=== PATIENT | male | born 1990 | race African-American/Black ===

== ENCOUNTER 2017-03-23 16:37 | Emergency (ER) | payer MEDICARE, MEDICAID ==
[~2017-03-23 16:37] MED LIST: CEPH250T PO; CLOT15CR73 TP; OLAN10TA19 PO; OLAN20TA16 PO; OXCA600T5 PO
[2017-03-23 18:07] LABS: URINE AMPHETAMINE SCREEN POSITIVE (Neg); URINE BARBITUATE SCREEN NEGATIVE (Neg); URINE BENZODIAZEPINES SCREEN NEGATIVE (Neg); URINE CANNABINOID SCREEN POSITIVE (Neg); URINE COCAINE SCREEN NEGATIVE (Neg); URINE METHADONE SCREEN NEGATIVE (Neg); URINE OPIATE SCREEN NEGATIVE (Neg); URINE PHENCYCLIDINE SCREEN NEGATIVE (Neg)
[2017-03-23 18:20] LABS: BASOPHILS % (AUTO) 0.5 % (0-1); EOSINOPHILS # (AUTO) 0.2 X10'3 (0-0.9); EOSINOPHILS % (AUTO) 3.8 % (0-6); HEMATOCRIT 42.7 % (42.0-52.0); HEMOGLOBIN 14.1 g/dl (14.0-17.9); LYMPHOCYTES # (AUTO) 1.4 X10'3 (1.1-4.8); LYMPHOCYTES % (AUTO) 24.9 % (21-51); MEAN PLATELET VOLUME 6.8 FL (7.4-10.4); MONOCYTES # (AUTO) 0.5 X10'3 (0-0.9); MONOCYTES % (AUTO) 8.3 % (2-12); NEUTROPHILS # (AUTO) 3.6 X10'3 (1.8-7.7); NEUTROPHILS % (AUTO) 62.5 % (42-75); PLATELET COUNT 261 X10'3 (140-440); RED BLOOD COUNT 4.54 X10'6 (4.70-6.10); WHITE BLOOD COUNT 5.7 X10'3 (4.5-11.0)
[2017-03-23 18:35] LABS: ALANINE AMINOTRANSFERASE 25 U/L (12-78); ALBUMIN 3.3 G/DL (3.4-5.0); ALBUMIN/GLOBULIN RATIO 1.1 (1.1-1.5); ALKALINE PHOSPHATASE 56 IU/L (46-116); ANION GAP 4 (8-16); ASPARTATE AMINO TRANSFERASE 17 U/L (10-37); BILIRUBIN,TOTAL 0.8 MG/DL (0.1-1.0); BLOOD UREA NITROGEN 8 MG/DL (7-18); BUN/CREATININE RATIO 8.7 (5.4-32.0); CALCIUM 8.4 MG/DL (8.5-10.1); CHLORIDE 106 MMOL/L (99-107); CREATININE 0.92 MG/DL (0.60-1.10); GLUCOSE 100 MG/DL (70-104); POTASSIUM 3.8 MMOL/L (3.5-5.1); SODIUM 140 MMOL/L (135-145); TOTAL CARBON DIOXIDE 30.5 MMOL/L (24-32); TOTAL PROTEIN 6.3 G/DL (6.4-8.2); eGFR > 90 ML/MIN
[2017-03-23 21:38] VITALS: BP 138/61
== END 2017-03-23 18:00 | disposition home or self-care (01) ==
LOC: ER 16:38
DX: M54.9 Dorsalgia, unspecified (principal); M54.2 Cervicalgia; F20.9 Schizophrenia, unspecified; Z98.890 Other specified postprocedural states; Z79.899 Other long term (current) drug therapy; V89.2XXA Person injured in unspecified motor-vehicle accident, traffic, initial encounter; Y93.89 Activity, other specified; Y92.89 Other specified places as the place of occurrence of the external cause; Y99.8 Other external cause status
CPT/HCPCS: 36415; 70450; 72125; 72128; 72131; 80053; 80305; 85025; 99285

== ENCOUNTER 2020-03-17 14:29 | Emergency (ER) | payer MEDICAID, MEDICARE ==
[~2020-03-17] VITALS: Ht 193 cm; Wt 113.6 kg
[~2020-03-17 14:29] MED LIST changes: -CEPH250T PO; -OLAN20TA16 PO; +OLAN20TA34 PO
[2020-03-17 14:56] VITALS: BP 114/83
[2020-03-17] MEDS ORDERED: OLAN20TA34 PO (15:27)
[2020-03-17] MEDS ORDERED: MIRT30TA8 PO (15:27)
[2020-03-17] MEDS ORDERED: VALP250S3 PO (15:27)
== END 2020-03-17 15:38 | disposition home or self-care (01) ==
LOC: ER 14:29
DX: Z02.89 Encounter for other administrative examinations (principal); Z76.0 Encounter for issue of repeat prescription; F20.9 Schizophrenia, unspecified; F12.90 Cannabis use, unspecified, uncomplicated; Z98.890 Other specified postprocedural states; Z79.2 Long term (current) use of antibiotics; Z79.899 Other long term (current) drug therapy
CPT/HCPCS: 99283

== ENCOUNTER 2020-05-08 01:21 | Emergency (ER) | payer MEDICARE ==
[~2020-05-08] VITALS: Ht 193 cm; Wt 100.0 kg
[~2020-05-08 01:21] MED LIST changes: +MIRT30TA8 PO; +VALP250S3 PO
[2020-05-08 02:29] LABS: BASOPHILS % (AUTO) 0.8 % (0-1); EOSINOPHILS # (AUTO) 0.1 X10'3 (0-0.9); EOSINOPHILS % (AUTO) 2.1 % (0-6); HEMATOCRIT 42.7 % (42.0-52.0); HEMOGLOBIN 14.4 g/dl (14.0-17.9); LYMPHOCYTES # (AUTO) 1.8 X10'3 (1.1-4.8); LYMPHOCYTES % (AUTO) 31.7 % (21-51); MEAN CORPUSCULAR HEMOGLOBIN 30.3 PG (27.0-31.0); MEAN CORPUSCULAR HGB CONC 33.8 g/dL (33.0-36.5); MEAN CORPUSCULAR VOLUME 89.6 FL (78-98); MEAN PLATELET VOLUME 7.6 FL (7.4-10.4); MONOCYTES # (AUTO) 0.6 X10'3 (0-0.9); MONOCYTES % (AUTO) 10.6 % (2-12); NEUTROPHILS # (AUTO) 3.1 X10'3 (1.8-7.7); NEUTROPHILS % (AUTO) 54.8 % (42-75); PLATELET COUNT 227 X10'3 (140-440); RED BLOOD COUNT 4.76 X10'6 (4.70-6.10); RED CELL DISTRIBUTION WIDTH 13.6 % (11.5-14.5); WHITE BLOOD COUNT 5.6 X10'3 (4.5-11.0)
[2020-05-08 02:43] LABS: ALANINE AMINOTRANSFERASE 18 U/L (12-78); ALBUMIN 3.8 G/DL (3.4-5.0); ALBUMIN/GLOBULIN RATIO 0.9 (1.1-1.5); ALKALINE PHOSPHATASE 64 IU/L (46-116); ANION GAP 5 (8-16); ASPARTATE AMINO TRANSFERASE 13 U/L (10-37); BILIRUBIN,TOTAL 0.5 MG/DL (0.1-1.0); BLOOD UREA NITROGEN 13 MG/DL (7-18); BUN/CREATININE RATIO 11.9 (5.4-32.0); CALCIUM 9.2 MG/DL (8.5-10.1); CHLORIDE 106 MMOL/L (99-107); CREATININE 1.09 MG/DL (0.60-1.10); GLUCOSE 93 MG/DL (70-104); POTASSIUM 3.8 MMOL/L (3.5-5.1); SODIUM 141 MMOL/L (135-145); TOTAL CARBON DIOXIDE 29.8 MMOL/L (24-32); TOTAL PROTEIN 7.9 G/DL (6.4-8.2); eGFR > 90 ML/MIN
--- NOTE | 2020-05-08 03:21 | NUR ---
OLI MARTÍNEZ HOME CARE WORKER/ADVOCATE FOR PATIENT AT BEDSIDE. ASSUMED CARE VSS NO SIGHN OF RESPIRATORY DISTRESS EYES CLOSE RESTING. EUPNEIC RESPIRSTIONS.
[2020-05-08] MEDS ORDERED: ondansetron 4mg rapidly disintigrating tab PO ONE (03:55)
[2020-05-08] MEDS ORDERED: amox tr/potassium clavulanate 875/125mg TAB PO ONE (03:55)
--- NOTE | 2020-05-08 04:02 | NUR ---
OLI HERNANDEZ ADMINSTRATOR [phone]
--- NOTE | 2020-05-08 04:15 | NUR ---
salt water mouth rinses to clear dried blood in mouth. Tolerated well
[2020-05-08] MEDS ORDERED: AMOX-115 PO (04:17)
--- NOTE | 2020-05-08 04:34 | NUR ---
window systems administrator José called back to turkey picker [facility]ervin johnston instructions to be discussed when he arrives to [employer] pick[facility]erv[facility].
[2020-05-08 05:23] VITALS: BP 114/76
== END 2020-05-08 05:26 | disposition home or self-care (01) ==
LOC: ER 01:21
DX: S02.40CA Maxillary fracture, right side, initial encounter for closed fracture (principal); G47.00 Insomnia, unspecified; F70 Mild intellectual disabilities; F20.9 Schizophrenia, unspecified; F12.90 Cannabis use, unspecified, uncomplicated; Z98.890 Other specified postprocedural states; Z79.899 Other long term (current) drug therapy; W18.39XA Other fall on same level, initial encounter; Y93.9 Activity, unspecified; Y92.89 Other specified places as the place of occurrence of the external cause; Y99.8 Other external cause status
CPT/HCPCS: 36415; 70450; 70486; 80053; 85025; 99285

== ENCOUNTER 2021-03-14 07:23 | Emergency (ER) | payer MEDICARE, MEDICAID ==
[~2021-03-14] VITALS: Ht 188 cm; Wt 85.0 kg
[~2021-03-14 07:23] MED LIST changes: +MIRT-88 PO; -MIRT30TA8 PO; -OLAN10TA19 PO; +OLAN10TA73 PO
[2021-03-14] MEDS ORDERED: normal saline 1000ML IV soln IVB ONE ×2 (07:55)
[2021-03-14] MEDS ORDERED: ondansetron/PF 4mg/2ml inj IV ONE (07:55)
[2021-03-14] MEDS ORDERED: pantoprazole 40MG/D5 100ML BAG 100 ML IV ONE (07:55)
[2021-03-14] MEDS ORDERED: pantoprazole 40MG/NS 100ML BAG 100 ML IV ONE (08:00)
[2021-03-14 08:11] LABS: BASOPHILS % (AUTO) 0.3 % (0-1); EOSINOPHILS # (AUTO) 0.1 X10'3 (0-0.9); EOSINOPHILS % (AUTO) 1.1 % (0-6); HEMATOCRIT 41.5 % (42.0-52.0); HEMOGLOBIN 14.2 g/dl (14.0-17.9); LYMPHOCYTES # (AUTO) 0.9 X10'3 (1.1-4.8); LYMPHOCYTES % (AUTO) 13.6 % (21-51); MEAN CORPUSCULAR HEMOGLOBIN 31.3 PG (27.0-31.0); MEAN CORPUSCULAR HGB CONC 34.3 g/dL (33.0-36.5); MEAN CORPUSCULAR VOLUME 91.3 FL (78-98); MEAN PLATELET VOLUME 6.6 FL (7.4-10.4); MONOCYTES # (AUTO) 0.5 X10'3 (0-0.9); MONOCYTES % (AUTO) 6.8 % (2-12); NEUTROPHILS # (AUTO) 5.4 X10'3 (1.8-7.7); NEUTROPHILS % (AUTO) 78.2 % (42-75); PLATELET COUNT 339 X10'3 (140-440); RED BLOOD COUNT 4.55 X10'6 (4.70-6.10); RED CELL DISTRIBUTION WIDTH 13.4 % (11.5-14.5); WHITE BLOOD COUNT 6.9 X10'3 (4.5-11.0)
[2021-03-14 08:19] LABS: ALANINE AMINOTRANSFERASE 32 U/L (12-78); ALBUMIN 3.4 G/DL (3.4-5.0); ALBUMIN/GLOBULIN RATIO 0.8 (1.1-1.5); ALKALINE PHOSPHATASE 79 IU/L (46-116); ANION GAP 6 (8-16); ASPARTATE AMINO TRANSFERASE 26 U/L (10-37); BILIRUBIN,TOTAL 0.4 MG/DL (0.1-1.0); BLOOD UREA NITROGEN 13 MG/DL (7-18); BUN/CREATININE RATIO 17.3 (5.4-32.0); CALCIUM 9.4 MG/DL (8.5-10.1); CHLORIDE 103 MMOL/L (99-107); CREATININE 0.75 MG/DL (0.60-1.10); ETHANOL < 0.010 GM/DL (0.0-0.010); GLUCOSE 94 MG/DL (70-104); LIPASE 99 U/L (73-393); POTASSIUM 4.3 MMOL/L (3.5-5.1); SODIUM 141 MMOL/L (135-145); TOTAL CARBON DIOXIDE 31.8 MMOL/L (24-32); TOTAL PROTEIN 7.7 G/DL (6.4-8.2); eGFR > 90 ML/MIN
[2021-03-14 08:59] VITALS: BP 122/97
[2021-03-14] MEDS ORDERED: ONDA8TAB13 PO (10:28)
[2021-03-14] MEDS ORDERED: PANT-47 PO (10:28)
== END 2021-03-14 11:11 | disposition home or self-care (01) ==
LOC: ER 07:23
DX: R19.7 Diarrhea, unspecified (principal); R10.31 Right lower quadrant pain; R11.10 Vomiting, unspecified; F20.9 Schizophrenia, unspecified; F17.200 Nicotine dependence, unspecified, uncomplicated; F12.90 Cannabis use, unspecified, uncomplicated; Z98.890 Other specified postprocedural states; Z79.2 Long term (current) use of antibiotics; Z79.899 Other long term (current) drug therapy
CPT/HCPCS: 36415; 71045; 80053; 80320; 83690; 85025; 96374; 96375; 99284; C9113; J2405; J7030

== ENCOUNTER 2025-02-11 17:05 | Emergency (ER) | payer MEDICAID, MEDICARE ==
[~2025-02-11] VITALS: Ht 188 cm; Wt 75.0 kg
[~2025-02-11 17:05] MED LIST changes: -OLAN20TA34 PO; +OLAN20TA81 PO; +ONDA-245 PO; +PANT-47 PO; +VALP250S26 PO; -VALP250S3 PO
[2025-02-11] MEDS ORDERED: diazepam inj 5 MG/ML inj. IM ONE (17:30)
[2025-02-11] MEDS ORDERED: haloperidol lactate 5mg/ml inj IM ONE (17:30)
--- NOTE | 2025-02-11 17:40 | Physician Documentation ---
History of Present Illness ~ Chief Complaint: Medical Clearance Stated Complaint: MED CLEARANCE Time Seen by MD: 17:17 Primary Medical Doctor: Jenny Gaines 34-year-old male presents to the ED via [facility] for medical clearance secondary to wounds on his left lower extremity. He has had multiple interactions with this patient they state that he has a long history with a infections on this leg. Patient presents as though he is high on methamphetamine and does have a long psychiatric history. The patient was resistant to treatment however he communicated to staff and [facility] that he was willing to be evaluated. Day of Onset: Feb 11, 2025 Medication Reconciliation Allergies: Coded Allergies: No Known Allergies (Unverified , 02/11/25) Scheduled Cephalexin*Monohydrate* (Keflex*), 1 CAP PO QID Clotrimazole/Betamet Diprop Cream* (Lotrisone Cream*), 1 APPLIC TP BID Mirtazapine (Mirtazapine), 1 TAB PO HS Olanzapine (Olanzapine), 1 TABLET PO HS, (Reported) Olanzapine (Olanzapine), 1 TABLET PO QAM, (Reported) Olanzapine (Olanzapine), 1 TAB PO HS Oxcarbazepine (Trileptal), 1 TABLET PO QAM, (Reported) Oxcarbazepine (Trileptal), 2 TABLET PO HS, (Reported) Pantoprazole Sodium (PROTONIX tablet), 1 TAB PO DAILY Sulfamethoxazole/Trimethoprim (Septra Ds Tab), 1 TAB PO Q12H Valproic Acid (As Sodium Salt) (Valproic Acid), 20 ML PO HS Scheduled PRN Ondansetron 8mg ODT (Ondansetron Odt), 1 TAB PO TID PRN for nausea/vomiting Past Medical History Past Medical History: *STREET SWEEPER OPERATOR*, Schizophrenia Past Surgical History: orthopedic surgeries Alcohol Use: None Drug Use: marijuana Lives with: Family Lives In: Home Occupation: employed Review of Systems All Other Systems at this time: Reviewed and Negative ROS As stated above in the HPI, otherwise all systems are reviewed and negative. Physical Exam Vital Signs: Temperature: 98.4, Source: Temporal, Heart Rate: 96, Respiratory Rate: 20, BP: 152/91, Pulse Oximetry: 100, Weight: 75.000 Oxygen Flow Rate: 0 Physical Exam General: Alert, anxious appearing Respiratory: Lungs clear, no respiratory distress. Chest: No accessory muscle use. Cardiovascular: Regular rate and rhythm, no murmurs. Extremities: Normal range of motion, no deformity. And/or ulcerations on the left lower extremity with some swelling no evidence of drainage he has a small ulceration on the medial aspect of the 3rd metatarsal with minor drainage Neurologic: Oriented x4. Pressured speech Psychiatric: Normal mood and affect. Progress Results/Orders Results/Orders Completed Orders - CHERIE GUILLEN NP Ceftriaxone Im Kit W/Lidocaine (Rocephin (02/11/25 17:45) Cephalexin Capsule (Keflex Capsule) (02/11/25 17:55) Sulfamethox/Trimetho. Ds Tab (Septra Ds (02/11/25 17:55) Medications Received in ER Medications (Trade) Dose Ordered Sig/Martita Route PRN Reason Start Time Stop Time Status Last Admin Dose Admin (Keflex capsule) 500 mg ONCE ONCE PO 02/11/25 17:55 02/11/25 17:56 DC 02/11/25 17:57 500 MG (Septra DS tab) 1 tab ONCE ONCE PO 02/11/25 17:55 02/11/25 17:56 DC 02/11/25 17:57 1 TAB Vital Signs 02/11/25 17:31 Temp 98.4 Pulse 96 Resp 20 B/P (MAP) 152/91 Pulse Ox 100 O2 Flow Rate 0 Medical Decision Making Additional information obtaine: old records Findings Initially I was concerned this patient may be septic based on the history I received from [facility]. The patient himself was not forthcoming. Therefore he was brought in to bed to to be evaluated and have a potential psych hold to evaluate. However the patient agreed to be evaluated he does not appear toxic his vitals are reassuring in his wounds appear to be well healing. I will place him on oral antibiotics and medically clear him for correction Differential Dx:Considerations: Include: Intoxication-Alcohol, Intoxication- Other drug, Personality disorder, Substance abuse disorder, Acute delirium, Cl osed head injury, Cervical spine injury, Skull fracture, Fracture(s), Abrasion, Contusion, Foreign body, Hematoma, Laceration, Alcohol withdrawl syndrom, Encephalopathy, Hepatitis, Medically stable, Other Departure Disposition: 01 HOME / SELF CARE / HOMELESS Impression: Primary Impression: Cellulitis Additional Impression: Soft tissue complaint Condition: Stable Additional Instructions: Patient evaluated for soft tissue infection in his left lower extremity. He does not present acutely ill however I am going to place him on oral antibiotics and medically clear him for correction Referrals: NO PRIMARY CARE PROVIDER (PCP) Prescriptions Sulfamethoxazole/Trimethoprim (Septra Ds Tab) 800 Mg/160 Mg Tablet 1 TAB PO Q12H for 10 Days, #20 TAB Prov: CHERIE GUILLEN NP 02/11/25 Cephalexin*Monohydrate* (Keflex*) 500 Mg Capsule 1 CAP PO QID, #40 CAP Prov: CHERIE GUILLEN NP 02/11/25 Signature Scribe Signature: g Attestation: Scribed for Cherie Guillen Quality Control Inspector by Cherie Guillen - LOLA . 02/11/25 18:03 CHERIE GUILLEN NP Feb 11, 2025 17:40
[2025-02-11] MEDS ORDERED: CEPH-585 PO (17:43)
[2025-02-11] MEDS ORDERED: SULF-16 PO (17:43)
[2025-02-11] MEDS: CefTRIAXone 1000mg IM Kit (w/lidocaine diluent) IM ONE (17:52)
[2025-02-11] MEDS: sulfamethoxazole/trimethoprim DS (800/160mg) tablet PO ONE (17:57)
[2025-02-11 18:00] VITALS: BP 150/90; PULSE 101; RESP 16; TEMP 98.4; O2SAT 98
== END 2025-02-11 18:03 | disposition home or self-care (01) ==
LOC: ER 17:06
DX: L03.116 Cellulitis of left lower limb (principal); F20.9 Schizophrenia, unspecified; F12.90 Cannabis use, unspecified, uncomplicated
CPT/HCPCS: 99283